=== PATIENT | male | born 1985 | race Caucasian/White ===

== ENCOUNTER 2019-01-20 11:14 | Emergency (ER) | payer OTHER ==
[~2019-01-20] VITALS: Ht 172.7 cm; Wt 70.3 kg
[~2019-01-20 11:14] MED LIST: ACETAMINOPHEN-1 EAC1 PO; AMOXICILLIN875 MG PO; ANTIPYRINE-BENZ14 ML OT; APAP500 PO; AUROGUARD OTIC15 ML OT; BENTYL 20 MG TA20 M1 PO; CARAFATE 1 GM TA1 G1 PO; CLEOCIN HCL300 MG PO; DIPHENHIST50 MG PO; FLEXERIL PO; HYDROCODONE-AP1 EAC6 PO; IBUPROFEN 800800 M1 PO; KEFLEX500 MG PO; NAPROSYN500 MG PO; NOHOMEMEDICATIONS; NORCO 5-325 TA1 EACH PO; PROAIR HFA8.5 GM INH; PROMETHAZINE D480 ML PO; TESSALON PERLE100 MG PO; TRAMADOL 50 MG50 MG PO; ZOFRAN4 MG PO; ZPAK PO
[2019-01-20] MEDS ORDERED: HYDROCORTISONE30 G9 RECTAL (12:30)
[2019-01-20] MEDS ORDERED: NORCO 5-325 TA1 EAC1 PO (12:30)
[2019-01-20] MEDS ORDERED: LIDOCAINE VISC100 ML TOP (12:30)
[2019-01-20] MEDS ORDERED: TUCKS1 EAC1 TOP (12:30)
[2019-01-20 12:38] VITALS: BP 138/88
== END 2019-01-20 12:38 | disposition home or self-care (01) ==
LOC: M.ERS 11:14
DX: K64.5 Perianal venous thrombosis (principal); Z88.0 Allergy status to penicillin; Z88.2 Allergy status to sulfonamides

== ENCOUNTER 2019-06-27 14:26 | Emergency (ER) | payer OTHER ==
[~2019-06-27] VITALS: Ht 175.3 cm; Wt 72.6 kg
[~2019-06-27 14:26] MED LIST changes: +HYDROCORTISONE30 G9 RECTAL; +LIDOCAINE VISC100 ML TOP; +NORCO 5-325 TA1 EAC1 PO; +TUCKS1 EAC1 TOP
[2019-06-27 14:52] VITALS: BP 145/82
== END 2019-06-27 14:53 | disposition home or self-care (01) ==
LOC: M.ERS 14:26
DX: R05 Cough (principal); R51 Headache; F17.210 Nicotine dependence, cigarettes, uncomplicated; Z88.0 Allergy status to penicillin; Z88.2 Allergy status to sulfonamides

== ENCOUNTER 2019-11-04 09:43 | Emergency (ER) | payer OTHER ==
[~2019-11-04] VITALS: Ht 180.3 cm; Wt 70.3 kg
[2019-11-04] MEDS ORDERED: CIPROFLOXIN HC2.5 M1 OPHTHALMIC (10:06)
[2019-11-04 10:10] VITALS: BP 131/78
== END 2019-11-04 10:10 | disposition home or self-care (01) ==
LOC: M.ERS 09:43
DX: H10.9 Unspecified conjunctivitis (principal); F17.210 Nicotine dependence, cigarettes, uncomplicated; Z88.0 Allergy status to penicillin; Z88.2 Allergy status to sulfonamides

== ENCOUNTER 2020-01-28 22:36 | Emergency (ER) | payer OTHER ==
[~2020-01-28] VITALS: Ht 175.3 cm; Wt 74.8 kg
[~2020-01-28 22:36] MED LIST changes: +CIPROFLOXIN HC2.5 M1 OPHTHALMIC
[2020-01-29 00:14] VITALS: BP 132/72
== END 2020-01-29 00:15 | disposition home or self-care (01) ==
LOC: M.ERS 22:36
DX: S61.411A Laceration without foreign body of right hand, initial encounter (principal); F17.210 Nicotine dependence, cigarettes, uncomplicated; Z88.0 Allergy status to penicillin; Z88.2 Allergy status to sulfonamides; W45.8XXA Other foreign body or object entering through skin, initial encounter; Y93.89 Activity, other specified; Y92.89 Other specified places as the place of occurrence of the external cause; Y99.8 Other external cause status

== ENCOUNTER 2020-02-07 10:14 | Emergency (ER) | payer OTHER ==
[~2020-02-07] VITALS: Ht 175.3 cm; Wt 74.8 kg
[2020-02-07 11:17] VITALS: BP 128/72
== END 2020-02-07 11:17 | disposition home or self-care (01) ==
LOC: M.ERS 10:14
DX: S61.411D Laceration without foreign body of right hand, subsequent encounter (principal); F17.210 Nicotine dependence, cigarettes, uncomplicated; Z88.0 Allergy status to penicillin; Z88.2 Allergy status to sulfonamides; X58.XXXD Exposure to other specified factors, subsequent encounter